=== PATIENT | male | born 1985 | race Caucasian/White ===

== ENCOUNTER 2019-09-22 14:32 | Emergency (ER) | payer OTHER ==
[~2019-09-22] VITALS: Ht 175.3 cm; Wt 89.8 kg
--- NOTE | 2019-09-22 14:58 | NUR ---
Patient awake alert yelling hookefd in the monitor
[2019-09-22] MEDS ORDERED: LORAZEPAM 1 MG TABLET PO ONE ×2 (15:00→16:30)
[2019-09-22] MEDS ORDERED: LORAZEPAM 1 MG TABLET ONE ×2 (15:02→16:10)
--- NOTE | 2019-09-22 16:14 | NUR ---
Patient discharged to home in stable condition. Written and verbal after care instructions given. Patient verbalizes understanding of instruction.
--- NOTE | 2019-09-22 16:14 | NUR ---
Patient discharged to home in stable condition. Written and verbal after care instructions given to Patient's brother verbalizes understanding of instruction.
[2019-09-22 16:26] VITALS: BP 123/78
== END 2019-09-22 16:28 | disposition home or self-care (01) ==
LOC: ER 14:39
DX: F19.10 Other psychoactive substance abuse, uncomplicated (principal); R00.0 Tachycardia, unspecified; R45.1 Restlessness and agitation; Z60.2 Problems related to living alone